=== PATIENT | female | born 1985 | race Hispanic/Latino ===

== ENCOUNTER 2020-02-08 18:51 | Outpatient (AMB) | payer MEDICAID, SELFPAY ==
--- NOTE | 2020-02-08 20:45 | UCVISIT ---
Intake Ht./Wt. Decline/Exclusions Patient Declined Height and Weight this visit: No PT Meets exclusion criteria: No Vital Signs 02/08/20 20:46 Height 1.65 m Height Method Measured Weight 101.321 kg Weight Measurement Method Standing Scale BMI 37.1 Temp 98.1 F Temp Source Temporal Artery Scan Pulse 86 Pulse Source Monitor Respiration 20 BP 143/83 H Blood Pressure Source Automatic Cuff Blood Pressure Location Left Upper Arm Position Sitting Pulse Oximetry (%) 98 Oxygen Delivery Method Room Air Intake [place] Travel (last 14 days): No [facility] Travel (last 14 days): No Been in Contact w/Anyone Being Evaluated for Coronavirus (last 14 days): No Been in Close Contact w/Anyone Dx w/Coronavirus: No Presenting Symptoms: Cough Zika Travel: No Been in contact w/anyone who has been Dx w/Zika Virus: No Been in contact w/anyone sick during travel outside country: No Patient >or equal to 18 years BMI outside of range 18.5-24.9: Yes Visit Reasons: UC Fever of unknown origin Primary Care Provider: Other,. Is patient in pain?: No Triage Triage Allergy / Med Rec Allergies No Known Allergies Allergy (Verified 02/08/20 20:53) Band Placement: Patient Identification DUNG: [id number] Arrival Mode of Arrival: Private Vehicle Method of Arrival: Ambulatory Accompanied By: Self Prehospital Treatment: tylenol 1500 ibuprofen at 1800 PCP or OBGYN visit in last 3 months: Yes Language Preferred Language: Angolan Industrial Maintenance Electrician Required: No Female History Now: No Last Menstrual Period: 02/08/20 : No Social History Alcohol / Drugs Hx Alcohol Use: No Hx Substance Use: No Safety Do You Feel Safe at Home: Yes Authorities Contacted: N/A Rodriguez Fall Scale Special Populations Patient Comatose, Paralyzed or Immobile: No Patient Under the Age of 44 Years Old: No Assessment History of falling; immediate or within 3 months: No Secondary diagnosis: No Ambulatory aid: None IV Infusion: No Gait/Transferring: Normal/bedrest/immobile Mental Status: Oriented to own ability Score Score: 0 Risk Level/Action Risk Level: Low Risk Action: Good Basic Nursing Care Fall Star Level 1 Fall Star Level 1: Yes Patient Education Topic Education Topics: Discharge Instructions and Plan of Care Teaching Recipient: Patient Readiness, Motivation to Learn: Active Methods: Verbal instruction and Hand Out Educ Materials Suggested by INFO Button/Rx Monograph Given: No Response: Verbalize Understanding Industrial Maintenance Electrician Required: No [facility] Hx Congestive Heart Failure: No Hx Diabetes Mellitus Type 1: No Hx Diabetes Mellitus Type 2: No Hx Renal Disease: No Hx Chronic Obstructive Pulmonary Disease (COPD): No Past Medical History Reviewed and agree with Nursing documentation.: Yes Past Medical History History Provided By: Patient Past Medical History: Yes Cardiac Medical History Hx Congestive Heart Failure: No Endocrine Medical History Hx Diabetes Mellitus Type 1: No Hx Diabetes Mellitus Type 2: No Genitourinary Medical History Hx Renal Disease: No Respiratory Medical History Hx COPD: No Female Reproductive Surgical History Hx Section: Yes HPI Fever of Unknown Origin History of Present Illness This is a 34-year-old female who presents the urgent care complaining of runny, sore throat, postnasal drip, congestion, fever, chills, body aches, general malaise, and fatigue x 2-3 days. No nausea vomiting or diarrhea. No chest pain or shortness of breath. She states her is ill with similar symptoms. Current symptoms: Reports fever(s), chills and fatigue Review of Systems (UC) Review of Systems All systems reviewed & no additional complaints except as documented Const Constitutional: Reports body ache, Reports chills, Reports fatigue, Reports fever(s), Reports headache(s), Reports lack of energy and Reports malaise ENT Ears. Nose, Mouth, and Throat: Denies ear pain, Reports headache(s), Reports nasal congestion and Reports sore throat Card Cardiovascular: Denies chest pain and Denies shortness of breath Resp Respiratory: Reports cough and Denies shortness of breath GI Gastrointestinal: Denies diarrhea, Denies nausea and Denies vomiting Neuro Neurologic: Reports headache(s) Endo Endocrine: Reports fatigue Exam (UC) Limitations: no limitations General Appearance: alert, in no apparent distress, comfortable, cooperative, healthy appearing, well developed and well groomed Head exam: atraumatic, normocephalic and normal inspection Eye exam: Reports normal appearance and Reports EOMI ENT exam: Present normal external ear exam, TM's normal bilaterally, normal oropharynx, mucous membranes moist, nasal congestion and nasal discharge Details: clear Neck Exam: Present normal inspection and supple Chest/Breast Exam: Present normal inspection and symmetric chest wall rise SPO2%: 98% SPO2 type: Room Air SPO2% Normal/Abnormal: Normal Respiratory exam: Present normal lung sounds bilaterally, normal respiratory effort, able to speak in complete sentences and clear to ascultation bilaterally Cardiovascular exam: Present regular rate and regular rhythm Extremities exam: normal inspection Back exam: Present normal inspection Neurological Exam: Present alert, awake and oriented X3 Psychiatric exam: Present normal affect and normal mood Skin exam: Present warm, dry, intact and normal color Office Procedures UC Level of Care Nursing/Assessment/Reassessment Patient Status: Established Patient Nursing Assessment/Reassessment: Triage Asessment, Initial Vital Signs and RN General Assessments Coordination of Care: DC Instructions Simple 1-2 sets, Lab/Imaging Orders and Specimen Collection Established Patient Charge Established Patient Point Assignment: 65 Established Patient Point Assignment: Level 2 (40-75) Procedures: Pulse Ox reading: Yes Influenza A&B: Yes Strep Screen: Yes Rapid Influenza Bedside Test Rapid Flu: Negative Rapid Strep Bedside Test Rapid Strep: Negative Assessment and Plan Assessment & Plan (1) Viral URI with cough: (2) Fever: (3) Viral syndrome: Plan Details Other Medications: New: cetirizine-pseudoephedrine 5-120 mg (Zyrtec-D) 1 tab PO Q12H 20 tabs 0RF acetaminophen ER swallow whole; do not crush, chew, break, dissolve, cut, or open 650 mg PO Q8H PRN 30 tabs 0RF fever or pain benzonatate (Tessalon Perles) 1-2 cap(s) PO Q8 hours prn cough 30 caps 0RF cough ibuprofen prn pain / fever 600 mg PO Q8H PRN 30 tabs 0RF fever or pain ipratropium bromide 2 sprays to each nostril q6-8 hours prn congestion; wait 30 seconds between sprays 30 mL 0RF Other Orders: Orders: Rapid Influenza Today UC Rapid Strep Today Throat Culture Today Additional Comments: Follow up with your doctor in 3-5 days for recheck and reevaluation. Take any / all medication(s) as directed. If worse, not improving, or any concerns go immediately to the EMERGENCY ROOM. DISCHARGE NOTE: I emphasized the need for follow-up with their primary care provider. Failure to follow-up could result in a poor outcome or failure of treatment altogether. If the patient is unable to follow-up with their primary care provider, they are to go to the Emergency Department if their symptoms persist or worsen. I have reviewed the discharge treatment plan and follow-up instructions with the patient and/or patient representatives, addressed any concerns, and answered any and all questions. They have verbalized understanding of the discharge treatment plan. Primary Care Provider: Other,. Instructions: Infecs Common Prevent Wash Hands Steps Director Of [employer] Steps ED Viral Syndrome ED URI Viral Additional Information PA/TELEMETRY TECHNICIAN Supervising Physician: Trevor Macdonald [facility] Evaluation Discharge Information Seen, Treated and Released by Provider: No Left Prior to Receiving Discharge Instructions: No Transfer to Outside Facility: No Vital Signs Vitals Signs N/A: Yes Pain Pain Medication / Other Intervention Provided: No Medication Medication Given this Visit: No Discharge Information Condition on Discharge: Stable Mode of Discharge: Ambulatory Discharge Transportation: Private Vehicle Instructions Industrial Maintenance Electrician Required: No Discharge Instructions Given To: Patient Was Follow up Care Ordered: Yes Verbalizes Understanding of Discharge Instructions: Yes [facility] information card provided?: Yes Patient plan follow up w/PCP for [employer]: No
[2020-02-08 20:46] VITALS: BP 143/83; PULSE 86; RESP 20; TEMP 36.7; O2SAT 98; BMI 37.1
== END 2020-02-08 21:20 | disposition home or self-care (01) ==
PROVIDERS: Visit Provider Physician Assistant